=== PATIENT | female | born 2000 ===

== ENCOUNTER 2024-07-13 00:09 | Inpatient (IN) | payer OTHER ==
[2024-07-13] MEDS ORDERED: Water For Irrigation,Sterile 1,000 ML Container IRR PRN (00:26)
[2024-07-13] MEDS ORDERED: Carboprost Tromethamine 250 MCG/1 mL Vial IM PRN (00:26)
[2024-07-13] MEDS ORDERED: Lidocaine 1% 50 ML MDV INJECT PRN (00:26)
[2024-07-13] MEDS ORDERED: Sodium Chloride 0.9% 10 ML Syringe FLUSH PRN (00:26)
[2024-07-13] MEDS ORDERED: Tranexamic Acid in NACL,ISO-OS 1,000 MG in Premix Bag 1 BAG IV PRN (00:26)
[2024-07-13] MEDS ORDERED: Sodium Chloride 0.9% 2.5 ML Syringe FLUSH PRN (00:26)
[2024-07-13] MEDS ORDERED: Sodium Chloride 0.9% 20 ML SDV IV PRN (00:26)
[2024-07-13] MEDS ORDERED: Terbutaline 1 MG/ML SDV SUBCUT PRN (00:31)
[2024-07-13] MEDS ORDERED: Oxytocin/0.9 % Sodium Chloride 30 UNIT/500 ML BAG IV SCH (00:45)
[2024-07-13] MEDS: Misoprostol 25 MCG (1/4 of 100 MCG) Tab PO ONE (01:06)
[2024-07-13] MEDS: Misoprostol 25 MCG (1/4 of 100 MCG) Tab VAG PRN (01:08)
[2024-07-13 01:16] LABS: HEMATOCRIT 27.1 % (37.0-47.0); HEMOGLOBIN 8.8 g/dL (12.0-16.0); MEAN CORPUSCULAR HEMOGLOBIN 25.4 pg (28.0-32.0); MEAN CORPUSCULAR HGB CONC 32.5 g/dL (32.0-36.0); MEAN CORPUSCULAR VOLUME 78.3 fL (83.0-99.0); MEAN PLATELET VOLUME 9.7 fL (9.4-12.3); PLATELET COUNT,PLT 407 K/uL (150-400); RED BLOOD CELL COUNT 3.46 M/uL (4.10-5.30); WHITE BLOOD CELL COUNT,WBC 12.79 K/uL (3.9-11.3)
[2024-07-13] MEDS: Butorphanol 2 MG/ML SDV IVPUSH PRN (02:49)
[2024-07-13] MEDS: Lactated Ringers 1,000 ML IV SCH (08:05)
[2024-07-13] MEDS ORDERED: Ropivacaine HCl/PF 200 ML ONE (08:28)
[2024-07-13] MEDS ORDERED: Phenylephrine HCl In 0.9% NaCl 1 MG/10 ML Syringe ONE (08:28)
[2024-07-13] MEDS ORDERED: Bupivacaine 0.5% 10 ML SDV ONE (08:28)
[2024-07-13] MEDS ORDERED: Phenylephrine HCl In 0.9% NaCl 1 MG/10 ML Syringe IVPUSH ONE (08:28)
[2024-07-13] MEDS: Ropivacaine HCl/PF 400 MG in Premix Bag 1 BAG EPIDUR SCH (08:45)
[2024-07-13] MEDS ORDERED: Phenylephrine HCl In 0.9% NaCl 1 MG/10 ML Syringe IVPUSH PRN (08:51)
[2024-07-13] MEDS ORDERED: ePHEDrine 50 MG/ML SDV IVPUSH PRN (08:51)
[2024-07-13] MEDS ORDERED: dexmedeTOMIDine HCl 200 MCG/2 ML SDV EPIDUR SCH (09:00)
[2024-07-13] MEDS: Oxytocin/0.9 % Sodium Chloride 30 UNIT/500 ML BAG IV SCH (09:26)
[2024-07-13] MEDS: Methylergonovine 0.2 MG/1 ML Amp IM PRN (09:33)
[2024-07-13] MEDS: Misoprostol 200 MCG Tab PO PRN (09:34)
[2024-07-13] MEDS ORDERED: Docusate Sodium 100 MG Cap PO PRN (09:42)
[2024-07-13] MEDS ORDERED: Acetaminophen 500 MG Tab PO PRN (09:42)
[2024-07-13] MEDS ORDERED: Lanolin 100% Cream 7 GM Tube TOP PRN (09:42)
[2024-07-13] MEDS ORDERED: Famotidine 20 MG Tab PO PRN (09:55)
[2024-07-13] MEDS ORDERED: Simethicone 80 MG Tab.Chew PO PRN (09:55)
[2024-07-13] MEDS ORDERED: diphenhydrAMINE 50 MG Cap PO PRN (09:55)
[2024-07-13] MEDS ORDERED: Sennosides 8.6 MG Tab PO PRN (09:55)
[2024-07-13] MEDS ORDERED: Aluminum Hydroxide/Magnesium Hydroxide/Simethicone Susp 30 ML Cup PO PRN (09:55)
[2024-07-13] MEDS ORDERED: Bisacodyl 10 MG Supp RECTAL PRN (09:55)
[2024-07-13] MEDS: Ondansetron 4 MG/2 ML SDV IVPUSH PRN (13:47)
[2024-07-13] MEDS: Ibuprofen 800 MG Tab PO PRN (13:55)
[2024-07-13] MEDS: Witch Hazel Medicated Pads 40/Jar TOP PRN (13:57)
[2024-07-13] MEDS: Benzocaine/Menthol 20%-0.5% Spray 78 GM Cannister TOP PRN (13:57)
[2024-07-14] MEDS: Iron Polysaccharides Complex 150 MG Cap PO SCH (08:57)
[2024-07-14 10:08] LABS: HEMATOCRIT 28.4 % (37.0-47.0); HEMOGLOBIN 9.2 g/dL (12.0-16.0)
== END 2024-07-14 17:00 | disposition home or self-care (01) | DRG 807 ==
LOC: MW.OBCHECK 00:09 → UNDOADMOB 00:11 → MW.OB 00:11 → INTOOBSV 09:08 → OBSVTOIN 09:08 → MW.OB 09:42 → OBSVTOIN 09:42 → MW.OB 13:26
PROVIDERS: ADMIT Obstetrics & Gynecology; ATTEND Obstetrics & Gynecology Obstetrics
PROC: 10E0XZZ Delivery of Products of Conception, External Approach (ICD-10-PCS; principal; 2024-07-13)
PROC: 0KQM0ZZ Repair Perineum Muscle, Open Approach (ICD-10-PCS; 2024-07-13)
PROC: 3E0P7VZ Introduction of Hormone into Female Reproductive, Via Natural or Artificial Opening (ICD-10-PCS; 2024-07-13)
PROC: 3E0R3BZ Introduction of Anesthetic Agent into Spinal Canal, Percutaneous Approach (ICD-10-PCS; 2024-07-13)
PROC: 00HU33Z Insertion of Infusion Device into Spinal Canal, Percutaneous Approach (ICD-10-PCS; 2024-07-13)
PROC: 3E033VJ Introduction of Other Hormone into Peripheral Vein, Percutaneous Approach (ICD-10-PCS; 2024-07-13)
DX: O99.214 Obesity complicating childbirth (principal); Z37.0 Single live birth; O99.02 Anemia complicating childbirth; E66.813 Obesity, class 3; O70.1 Second degree perineal laceration during delivery; O62.2 Other uterine inertia; Z3A.39 39 weeks gestation of pregnancy; Z88.0 Allergy status to penicillin
CPT/HCPCS: 36415; 59025; 59409; 85014; 85018; 85027; 86592; 86850; 86900; 86901; A9270-GY; J0595; J0665; J2210; J2371; J2405; J2590; J2795; J7120

== ENCOUNTER 2024-10-31 18:32 | Emergency (ER) | payer OTHER ==
[2024-10-31 19:44] LABS: BASOPHILS ABSOLUTE AUTO 0.05 K/uL (0.00-0.20); BASOPHILS PERCENT AUTO 0.3 % (0.0-1.0); EOSINOPHILS ABSOLUTE AUTO 0.15 K/uL (0.00-0.45); HEMATOCRIT 36.2 % (37.0-47.0); HEMOGLOBIN 11.6 g/dL (12.0-16.0); IMMATURE GRAN ABSOLUTE AUTO 0.03 K/uL (0.00-0.05); IMMATURE GRAN PERCENT AUTO 0.2 % (0.0-0.4); LYMPHOCYTES ABSOLUTE AUTO 3.01 K/uL (1.00-4.80); LYMPHOCYTES PERCENT AUTO 19.4 % (24.0-44.0); MEAN CORPUSCULAR HEMOGLOBIN 24.5 pg (28.0-32.0); MEAN CORPUSCULAR VOLUME 76.5 fL (83.0-99.0); MEAN PLATELET VOLUME 8.7 fL (9.4-12.3); MONOCYTES ABSOLUTE AUTO 0.93 K/uL (0.00-0.80); NEUTROPHILS ABSOLUTE AUTO 11.31 K/uL (1.80-7.70); NEUTROPHILS PERCENT AUTO 73.1 % (41.0-71.0); PLATELET COUNT,PLT 492 K/uL (150-400); RED BLOOD CELL COUNT 4.73 M/uL (4.10-5.30); WHITE BLOOD CELL COUNT,WBC 15.48 K/uL (3.9-11.3)
[2024-10-31 20:02] LABS: INR 1.02 (0.86-1.11); PTT,PARTIAL THROMBOPLSTIN TIME 29.3 SEC (23.9-30.7)
[2024-10-31 20:14] LABS: A/G RATIO 0.7 (0.9-1.6); ALBUMIN 3.4 g/dL (3.4-5.0); BILIRUBIN TOTAL 0.4 mg/dL (0.2-1.0); CARBON DIOXIDE,CO2 28.6 mmol/L (21.0-32.0); CREATININE 0.9 mg/dL (0.6-1.0); EST CRCL DRUG DOSING (CG) 84.67 mL/min; PROTEIN TOTAL,TP 8.3 g/dL (6.4-8.2)
[2024-10-31 21:08] LABS: APPEARANCE,URINE CLOUDY; BILIRUBIN,URINE NEGATIVE (NEGATIVE); COLOR,URINE RED; GLUCOSE,URINE NEGATIVE (NEGATIVE); KETONES,URINE NEGATIVE (NEGATIVE); LEUKOCYTE ESTERASE,URINE NEGATIVE (NEGATIVE); NITRITE,URINE NEGATIVE (NEGATIVE); OCCULT BLOOD,URINE LARGE (NEGATIVE); PH,URINE 6.5 (5.0-8.0); PROTEIN,URINE >=300 mg/dL (NEGATIVE); UROBILINOGEN,URINE 0.2 EU/dL (<2.0)
[2024-10-31 21:14] LABS: BACTERIA,URINE FEW (NEGATIVE); EPITHELIAL CELLS,URINE FEW (NONE-FEW); MUCUS,URINE LIGHT (NONE-MOD); RBC,URINE TOO NUMEROUS TO CT (0-2/HPF); WBC,URINE 0-2 (0-5/HPF)
[2024-10-31] MEDS: Tranexamic Acid in NACL,ISO-OS 1,000 MG in Premix Bag 1 BAG IV ONE (21:30)
[2024-10-31 21:48] LABS: CANDIDA DNA PROBE NEGATIVE (NEGATIVE); GARDNERELLA DNA PROBE NEGATIVE (NEGATIVE); TRICHOMONAS DNA PROBE NEGATIVE (NEGATIVE)
[2024-10-31] MEDS: Iopamidol 755 MG/ML 500 ML Multipack Bottle IVPUSH ONE (22:25)
[2024-10-31 22:28] LABS: C. TRACHOMATIS BY PCR NOT DETECTED; N. GONORRHOEAE BY PCR NOT DETECTED
== END 2024-10-31 23:07 | disposition home or self-care (01) ==
LOC: MW.ED 18:32
DX: N93.9 Abnormal uterine and vaginal bleeding, unspecified (principal); Z75.8 Other problems related to medical facilities and other health care; Z88.0 Allergy status to penicillin
CPT/HCPCS: 36415; 74177; 76857; 80053; 81001; 84702; 85025; 85610; 85730; 87480; 87491; 87510; 87591; 87660; 96365; 99284; Q9967; 99283